=== PATIENT | male | born 1950 | race African-American/Black ===

== ENCOUNTER 2018-07-27 22:15 | Inpatient (IN) | payer BC, MEDICARE, OTHER ==
[~2018-07-27] VITALS: Ht 175.3 cm; Wt 87.5 kg
[2018-07-28] MEDS ORDERED: ONDANSETRON HCL 4MG/2ML INJ IV STA (00:51)
[2018-07-28] MEDS ORDERED: MORPHINE SULFATE 4 MG/ML CPJ (NOT FOR IM USE) IV STA (00:51)
[2018-07-28 01:57] LABS: BASOPHILS % 0.5 % (0.0-2.0); EOSINOPHILS % 1.2 % (0.0-5.0); HEMATOCRIT. 40.6 % (42.0-52.0); HEMOGLOBIN. 14.2 g/dL (14.0-18.0); LYMPHOCYTES % 13.5 % (20.0-50.0); MEAN CORPUSCULAR HEMOGLOBIN 32.4 pg (28.0-32.0); MEAN CORPUSCULAR VOLUME 92.7 fL (80.0-94.0); MEAN PLATELET VOLUME 8.9 fl (7.4-10.4); MONOCYTES % 10.4 % (2.0-8.0); NEUTROPHILS % 74.4 % (40.0-76.0); PLATELET 145 x1000/uL (130-400); RED BLOOD CELL COUNT 4.38 mill/uL (4.7-6.1); RED CELL DISTRIBUTION WIDTH 13.4 % (11.6-14.6)
[2018-07-28 02:04] LABS: CHLORIDE 104 mEq/L (98-107)
[2018-07-28 02:05] LABS: INR 1.1; PARTIAL THROMBOPLASTIN TIME 29.4 sec (23.4-31.0)
[2018-07-28 02:21] LABS: CLARITY URINE CLEAR (CLEAR); COLOR URINE YELLOW (YELLOW); KETONES URINE NEGATIVE (NEGATIVE); LEUKOCYTE ESTERASE URINE NEGATIVE (NEGATIVE); NITRITE URINE NEGATIVE (NEGATIVE); OCCULT BLOOD URINE NEGATIVE (NEGATIVE); PROTEIN URINE NEGATIVE (NEGATIVE); SPECIFIC GRAVITY URINE 1.013 (1.005-1.030); UROBILINOGEN URINE 0.2 E.U./dL (0.2-1.0)
[2018-07-28 02:35] LABS: *AMPHETAMINES SCREEN URINE NEGATIVE (NEGATIVE); *BARBITURATES SCREEN URINE NEGATIVE (NEGATIVE); *BENZODIAZEPINES SCREEN URINE NEGATIVE (NEGATIVE); *COCAINE SCREEN URINE NEGATIVE (NEGATIVE); CANNABINOID URINE SCREEN NEGATIVE (NEGATIVE); PHENCYCLIDINE URINE SCREEN NEGATIVE (NEGATIVE)
[2018-07-28 02:36] LABS: OPIATES URINE SCREEN PRESUMTIVE POSITIVE (NEGATIVE)
[2018-07-28 02:37] LABS: METHADONE URINE SCREEN NEGATIVE (NEGATIVE)
[2018-07-28 09:00] VITALS: BP 123/93
[2018-07-28] MEDS ORDERED: ASPIRIN 81MG EC TABLET PO SCH (09:00)
[2018-07-28] MEDS ORDERED: ONDANSETRON HCL 4MG/2ML INJ IV PRN (09:15)
[2018-07-28] MEDS ORDERED: METOPROLOL TARTRATE 25MG TABLET PO SCH (09:15)
[2018-07-28] MEDS ORDERED: DOCUSATE SODIUM 100MG CAPSULE PO PRN (09:15)
[2018-07-28] MEDS ORDERED: ACETAMINOPHEN 325MG TABLET PO PRN (09:15)
[2018-07-28] MEDS ORDERED: HYDROCODONE/ACETAMINOPHEN 5/325MG TABLET PO PRN (09:15)
[2018-07-28] MEDS ORDERED: HYDR-4005 PO (10:04)
[2018-07-28] MEDS ORDERED: TELM80TA8 PO (10:04)
[2018-07-28 11:59] LABS: HEMATOCRIT 44.6 % (42.0-52.0); HEMOGLOBIN 15.4 g/dL (14.0-18.0); MEAN CORPUSCULAR HEMOGLOBIN 32.2 pg (28.0-32.0); MEAN CORPUSCULAR VOLUME 93.6 fL (80.0-94.0); PLATELET 160 x1000/uL (130-400); RED BLOOD CELL COUNT 4.77 mill/uL (4.7-6.1); RED CELL DISTRIBUTION WIDTH 13.7 % (11.6-14.6)
[2018-07-28 12:00] VITALS: BP 124/61
[2018-07-28] MEDS ORDERED: ENOXAPARIN 40MG/0.4ML SYR SUBCUT SCH (12:00)
[2018-07-28] MEDS ORDERED: PANTOPRAZOLE SODIUM 40 MG/VIAL IV SCH (12:00)
[2018-07-28 12:55] LABS: CHLORIDE 102 mEq/L (98-107)
[2018-07-28 13:04] LABS: LDL CHOLESTEROL 88 mg/dL (5-100)
[2018-07-28 13:06] LABS: HDL CHOLESTEROL 76 mg/dL (40-59); T4 FREE 0.99 ng/dL (0.76-1.46)
[2018-07-28] MEDS ORDERED: IOHEXOL-350 100 ML BOTTLE ONE (14:45)
[2018-07-28] MEDS ORDERED: SODIUM CHLORIDE 0.45% 1,000 ML IV SCH (15:00)
[2018-07-28 15:55] VITALS: BP 152/72
[2018-07-28] MEDS ORDERED: DOCUSATE SODIUM 100MG CAPSULE PO SCH (17:00)
[2018-07-29] MEDS ORDERED: INFLUENZA VIRUS VACCINE(AFLURIA) 0.5ML SYR IM ONE (09:00)
== END 2018-07-28 17:53 | disposition home or self-care (01) | DRG 392 ==
LOC: ER 22:15 → 6WST 07-28 04:26 → EDBEDREQ 07-28 04:35 → EDBEDREQTM 07-28 04:35 → ENRESERV 07-28 06:57
PROVIDERS: ADMIT Internal Medicine; ATTEND Internal Medicine
DX: K21.9 Gastro-esophageal reflux disease without esophagitis (principal); J90 Pleural effusion, not elsewhere classified; J98.11 Atelectasis; I24.9 Acute ischemic heart disease, unspecified; I11.9 Hypertensive heart disease without heart failure; I83.90 Asymptomatic varicose veins of unspecified lower extremity; K59.00 Constipation, unspecified; Z88.8 Allergy status to other drugs, medicaments and biological substances; Z79.1 Long term (current) use of non-steroidal anti-inflammatories (NSAID); Z79.899 Other long term (current) drug therapy
CPT/HCPCS: 36415; 71045; 71275; 74018; 80048; 80061; 80305; 83036; 83880; 84153; 84439; 84443; 84484; 85027; 85379; 93005; 93306; 93970; 96374; 96375; 99285; J2270; J2405; Q9967; G0103